=== PATIENT | female | born 1970 | race Caucasian/White ===

== ENCOUNTER → 2020-08-08 10:55 | Outpatient (CLI) | payer BC, SELFPAY | PROVIDERS: PCP Family Medicine; Referring Provider Nurse Practitioner Family; Visit Provider Nurse Practitioner Family | DX: Z20.828 Contact with and (suspected) exposure to other viral communicable diseases (principal) | CPT/HCPCS: 87635; C9803; U0003 ==

== ENCOUNTER 2020-12-25 11:54 | Emergency (ER) | payer BC, SELFPAY ==
[2020-12-25 11:55] VITALS: BP 161/100; PULSE 108; PULSE 115; RESP 20; RESP 22; TEMP 36.7; O2SAT 99; BMI 33.3
--- NOTE | 2020-12-25 12:10 | EKG12_ITS ---
Test Reason : CP Blood Pressure : / mmHG Vent. Rate : 107 BPM Atrial Rate : 107 BPM P-R Int : 142 ms QRS Dur : 100 ms QT Int : 334 ms P-R-T Axes : 069 055 029 degrees QTc Int : 445 ms Sinus tachycardia Otherwise normal ECG Confirmed by ALMAS DELONG, TREVA ([id number]), dictionary editor CHARISSA MAIN ([id number]) on 12/28/2020 12:29:06 PM Referred By: DILLON/CONCEPCION Confirmed By:RENU COBURN MD
--- NOTE | 2020-12-25 12:45 | RAD_ITS ---
STUDY: X-RAY CHEST REASON FOR EXAM: Female, 50 years old. Chest pain TECHNIQUE: Single AP portable view of the chest. COMPARISON: None. FINDINGS: EKG electrodes are seen. The lungs are clear and expanded. There is no demonstrated pleural abnormality. Normal size heart. Normal mediastinum and song. Normal visualized pulmonary arteries. Normal visualized aortic arch and descending thoracic aorta. Normal visualized thoracic spine. Normal visualized ribs, clavicles, and shoulders. There is no demonstrated abnormality of the visualized soft tissue structures of the upper abdomen. RAD/Chest 1 View (Portable) IMPRESSION: Normal x-ray examination of the chest. Electronically Signed: Phani Menjivar MD at 12:55 EDT , Service support ,
[2020-12-25] MEDS: Aspirin 81 MG TAB.CHEW 324 MG PO (13:02)
[2020-12-25 13:08] LABS: Absolute Neutrophil Count 6.6 X10^3/uL (2.0-7.7); Basophil# 0.05 X10^3/uL; Basophil% 0.6 % (0-1); Eosinophil# 0.05 X10^3/uL; Eosinophils% 0.6 % (0-5); Hematocrit 49.7 % (37-47); Hemoglobin 17.1 g/dL (12.0-15.0); Mean Corp Hgb Conc 34.4 g/dL (32-36); Mean Corpuscular Hgb 31.4 pg (27.0-32.0); Mean Corpuscular Volume 91.4 fL (81-99); Mean Platelet Vol. 9.1 fl (6.2-12.0); Monocyte% 5.6 % (0-10); NRBC Flagged by Analyzer 0 % (0-5); Neutrophil # 6.62 X10^3/uL (2.7-7.7); Platelet Count 371 K/mm3 (150-450); RBC Distribution Width CV 13.2 % (11.6-14.6); RBC Distribution Width SD 44.9 fl (35.1-43.9); Red Blood Count 5.44 M/mm3 (4.2-5.4); White Blood Count 8.9 K/mm3 (4.4-11.0)
[2020-12-25 13:22] LABS: D-Dimer Quantitative (DVT/PE) 0.33 FEU/ug/m (0.27-0.49)
[2020-12-25 13:38] LABS: Anion Gap 5 (5-15); BUN 12 mg/dL (7-18); Calcium,Total 9.4 mg/dL (8.5-10.1); Chloride 103 mmol/L (98-107); Creatinine, Serum 0.92 mg/dL (0.55-1.02); EST Glomerular Filtration Rate 69 mL/min (>60); Est Glom Filt Rate - Afr Amer 83 mL/min (>60); Estimated Creatinine Clearance 57.86 ml/min; Glucose 100 mg/dL (74-106); Sodium Level 136 mmol/L (136-145); Thyroid Stim Hormone (TSH) 1.95 uIU/mL (0.358-3.74)
--- NOTE | 2020-12-25 14:42 | ED.DCSUM_ITS ---
- ER Visit Summary Date of Service: 12/25/20 Chief Complaint: Chest pain History of Present Illness: The patient is a [address] Hubert Marques. She reports that 2 days ago she had an episode of chest pain lasted 5 minutes while she was undergoing light activity. She denies any chest pain yesterday. She reports that she has had constant chest pain for the past 6-1/2 hours. Describes it as a tightness and pressure. 5-10 at worst and 4-10 currently. It is worsened by turning her head to the left. There is no change with exertion. It is relieved by nothing. She denies any associated nausea, vomiting, diaphoresis, shortness of breath. Patient has high blood pressure, tobacco use, and family history as her risk factors for coronary disease. She denies any chest pain or change in dyspnea exertion in the past month. No ankle swelling or calf pain. No personal family history of DVT. No recent travel. Physical Examination: Vitals: Stable. Afebrile. General: Well-nourished and well-developed. Head: Normocephalic atraumatic. Neck: Supple, no lymphadenopathy. No JVD. Nontender. Cardiovascular: Regular tachycardic rhythm. No murmurs. Respiratory: No respiratory distress. Clear to auscultation bilaterally. Abdominal: Soft, nontender, nondistended, normal bowel sounds. No guarding, rebound, or peritoneal signs. Back: Nontender. Extremities: Nontender, no edema. Skin: Normal color, no rash. Neurologic: Alert and oriented ?3. Cranial nerves II through XII are intact. Normal strength and sensation. Psych: Normal affect. Test Results: EKG is sinus tach [address] changes. Troponin is negative despite greater than 6 hours of constant pain. D-dimer is negative. Chem-7 shows a potassium of 3.0. TSH is 1.95. CBC shows an H&H of 17.1 49.7. Clinical Impression(s) from Imaging Studies Chest X-Ray 12/25/20 12:45 IMPRESSION: Normal x-ray examination of the chest. Electronically Signed: Phani Menjivar MD at 12:55 EDT , Service support , Emergency Department Course and Treatment: Patient was given a liter of normal saline. Her heart rate is now in the 70s. She is resting comfortably. Treatment Plan: This time the patient's pain is very atypical. She has a heart score of 3. I feel that she is suitable candidate for further outpatient evaluation. She will be discharged instructions follow-up with her primary care physician within 2 days for another exam. She is instructed to eat a high potassium diet. Return to the emergency department for any worsening symptoms. Disposition: To home in improved and stable condition. Impression: 1. Atypical chest pain. 2. Sinus tachycardia. 3. Hypokalemia. 4. Heart score of 3. This note was generated with [employer] dictation software. It may contain incorrect words, spelling, and punctuation that were not noted in review of the chart prior to signing ED Disposition - Plan for ED Patient: Disposition: Home or Assisted Living Instructions: ED Chest Pain, Uncertain Cause Referrals: Hubert Marques III, MD [Primary Care Provider] - 2 Days
[2020-12-25 15:15] VITALS: BP 139/83; PULSE 74; RESP 16; O2SAT 98
== END 2020-12-25 15:16 | disposition home or self-care (01) ==
LOC: ED 12:20
PROVIDERS: Emergency Provider Emergency Medicine; PCP Family Medicine
DX: R07.89 Other chest pain (principal); R00.0 Tachycardia, unspecified; E87.6 Hypokalemia; F17.200 Nicotine dependence, unspecified, uncomplicated; I10 Essential (primary) hypertension
CPT/HCPCS: 36415; 71045; 80048; 84443; 84484; 85025; 85379; 93005; 99284; A4216